=== PATIENT | male | born 1970 | race Caucasian/White ===

== ENCOUNTER 2021-10-08 12:00 | Emergency (ER) | payer MEDICARE, OTHER ==
[2021-10-08] MEDS ORDERED: Iopamidol 370 76% 100 ML VIAL FS ONE (12:01)
[2021-10-08] MEDS ORDERED: Lidocaine Viscous Sol 2% 15 ml UD Cup ONE (12:29)
[2021-10-08] MEDS ORDERED: Mag-Al Plus 1200 MG/1200 MG/120 MG/30 ML UDCUP ONE (12:29)
[2021-10-08 12:41] LABS: #Basophils 0.1 thou/uL (0.0-0.2); #Eosinphils 0.2 thou/uL (0.0-0.7); #Lymphocytes 1.2 thou/uL (1.20-3.40); #Monocytes 0.4 thou/uL (0.11-0.59); %Basophils 0.6 % (0.0-1.0); %Eosinophils 2.3 % (0.0-10.0); %Lymphocytes 14.9 % (21.0-51.0); %Monocytes 5.2 % (0.0-10.0); Hemoglobin 17.9 g/dL (14.0-18.0); Mean Corpuscular Hemoglobin 32.1 pg (27.0-31.0); Mean Corpuscular Volume 94.2 fL (78.0-98.0); Platelet Count 179 thou/uL (130-400); RBC Distribution Width 12.4 % (11.5-14.5); Red Blood Cell (RBC) Count 5.57 mill/uL (4.70-6.10); White Blood Cell (WBC) Count 7.8 thou/uL (4.8-10.8)
[2021-10-08 12:59] LABS: ALT (SGPT) 39 U/L (8-55); AST (SGOT) 29 U/L (5-34); Albumin 4.3 g/dL (3.5-5.0); Alkaline Phosphatase 57 U/L (40-110); Anion Gap 13 mmol/L (10-20); BUN (Urea Nitrogen) 13 mg/dL (8.9-20.6); Bilirubin, Total 0.3 mg/dL (0.2-1.2); Calc. Creatinine Clearance 0 mL/min (70-130); Calcium 9.2 mg/dL (7.8-10.44); Carbon Dioxide 25 mmol/L (22-29); Chloride 107 mmol/L (98-107); Globulin 2.9 g/dL (2.4-3.5); Glucose 103 mg/dL (70-105); Lipase 19 U/L (8-78); Potassium 4.3 mmol/L (3.5-5.1); Protein, Total 7.2 g/dL (6.0-8.3); Sodium 141 mmol/L (136-145)
== END 2021-10-08 14:42 | disposition home or self-care (01) ==
LOC: BURERS 12:00
DX: K29.70 Gastritis, unspecified, without bleeding (principal); C85.90 Non-Hodgkin lymphoma, unspecified, unspecified site
CPT/HCPCS: 74177; 80053; 83605; 83690; 85025; Q9967

== ENCOUNTER 2021-11-17 16:29 | Emergency (ER) | payer MEDICARE, OTHER | END 2021-11-17 17:36 | disposition home or self-care (01) | LOC: BURERS 16:29 | DX: S40.011A Contusion of right shoulder, initial encounter (principal); M62.838 Other muscle spasm; W18.30XA Fall on same level, unspecified, initial encounter ==

== ENCOUNTER 2022-05-13 05:26 | Emergency (ER) | payer MEDICARE ==
[2022-05-13] MEDS ORDERED: Ketorolac Tromethamine 30 MG/ML VIAL ONE (06:00)
== END 2022-05-13 06:05 | disposition home or self-care (01) ==
LOC: BURERS 05:26
DX: S29.011A Strain of muscle and tendon of front wall of thorax, initial encounter (principal); Y93.F2 Activity, caregiving, lifting; F17.210 Nicotine dependence, cigarettes, uncomplicated
CPT/HCPCS: 93005; 96372; J1885